=== PATIENT | male | born 1935 | race Caucasian/White ===

== ENCOUNTER 2023-09-21 21:47 | Inpatient (IN) | payer MEDICARE, BC ==
[2023-09-21] MEDS ORDERED: niCARdipine 25 MG/10 ML SDV ONE (22:09)
[2023-09-21 22:13] LABS: #Basophils 0.1 thou/uL (0.0-0.2); #Eosinphils 0.1 thou/uL (0.0-0.7); #Monocytes 0.7 thou/uL (0.11-0.59); #Neutrophils 7.1 thou/uL (1.40-6.50); %Basophils 0.7 % (0.0-1.0); %Eosinophils 1.4 % (0.0-10.0); %Lymphocytes 22.4 % (21.0-51.0); %Monocytes 6.7 % (0.0-10.0); %Neutrophils 68.5 % (42.0-75.0); Hemoglobin 15.1 g/dL (14.0-18.0); Mean Corpuscular HGB CONC 33.6 g/dL (32.0-36.0); Mean Corpuscular Hemoglobin 31.3 pg (27.0-31.0); Mean Corpuscular Volume 93.4 fl (78.0-98.0); Mean Platelet Volume 8.6 fL (7.4-10.4); Platelet Count 296 10x3/uL (130-400); RBC Distribution Width 12.8 % (11.5-14.5); Red Blood Cell (RBC) Count 4.82 mill/uL (4.70-6.10); White Blood Cell (WBC) Count 10.4 10x3/uL (4.8-10.8)
[2023-09-21 22:29] LABS: Prothrombin Time 13.1 sec (12.0-14.7)
[2023-09-21] MEDS ORDERED: Ondansetron PF 4 MG/2 ML Vial ONE (22:35)
[2023-09-21 22:36] LABS: ALT (SGPT) 12 U/L (8-55); AST (SGOT) 21 U/L (5-34); Albumin 4.6 g/dL (3.4-4.8); Alkaline Phosphatase 89 U/L (40-110); Anion Gap 16 mmol/L (10-20); BUN (Urea Nitrogen) 10 mg/dL (8.4-25.7); Bilirubin, Total 0.7 mg/dL (0.2-1.2); Calc. Creatinine Clearance 0 mL/min (70-130); Calcium 9.4 mg/dL (7.8-10.44); Carbon Dioxide 23 mmol/L (23-31); Chloride 103 mmol/L (98-107); Estimated GFR 83; Globulin 2.8 g/dL (2.4-3.5); Glucose 149 mg/dL (83-110); Potassium 3.7 mmol/L (3.5-5.1); Protein, Total 7.4 g/dL (5.8-8.1); Sodium 138 mmol/L (136-145)
[2023-09-21 22:39] LABS: Troponin I Less than 0.010 ng/mL (< 0.028)
[2023-09-22] MEDS ORDERED: Sodium Chloride 0.9% 1,000 ML IV SCH (00:30)
[2023-09-22 00:37] VITALS: BMI 20.7
[2023-09-22] MEDS: Morphine 2 MG/ML VIAL SLOW IVP PRN ×3 (05:52→14:36)
[2023-09-22] MEDS: Lorazepam 2 MG/ML VIAL SLOW IVP PRN ×2 (05:53→11:39)
[2023-09-22] MEDS ORDERED: Scopolamine 1 mg/72 hour Patch TD SCH (06:00)
[2023-09-22 08:08] VITALS: BP 130/76
[2023-09-22 14:43] VITALS: TEMP 101.4
== END 2023-09-22 15:39 | disposition hospice, inpatient (51) | DRG 64 ==
LOC: ERS 21:47 → T4-B 23:05 → OBSVTOIN 09-22 10:39
PROVIDERS: ADMIT Internal Medicine; ATTEND Internal Medicine
DX: I60.9 Nontraumatic subarachnoid hemorrhage, unspecified (principal); G93.41 Metabolic encephalopathy; G93.6 Cerebral edema; J96.01 Acute respiratory failure with hypoxia; F03.94 Unspecified dementia, unspecified severity, with anxiety; I16.1 Hypertensive emergency; F03.911 Unspecified dementia, unspecified severity, with agitation; I62.9 Nontraumatic intracranial hemorrhage, unspecified; F32.A Depression, unspecified; F03.90 Unspecified dementia, unspecified severity, without behavioral disturbance, psychotic disturbance, mood disturbance, and anxiety; Z90.49 Acquired absence of other specified parts of digestive tract; Z85.46 Personal history of malignant neoplasm of prostate; Z79.82 Long term (current) use of aspirin; Z79.899 Other long term (current) drug therapy
CPT/HCPCS: 36415; 36416; 70450; 71045; 80053; 84484; 85025; 85610; 85730; 93005; 94760; J2060; J2272; J2405

== ENCOUNTER 2023-09-22 15:57 | Inpatient (IN) | payer MEDICARE, OTHER ==
[2023-09-22] MEDS ORDERED: Acetaminophen 650 MG Suppository PR PRN (16:15)
[2023-09-22] MEDS ORDERED: Scopolamine 1 mg/72 hour Patch TOP PRN (16:15)
[2023-09-22] MEDS ORDERED: Haloperidol Lactate 5 MG/ML VIAL SLOW IVP PRN (16:15)
[2023-09-22] MEDS ORDERED: Ondansetron PF 4 MG/2 ML Vial IVP PRN (16:15)
[2023-09-22] MEDS ORDERED: Glycopyrrolate 0.4 MG/ 2 ML VIAL SLOW IVP PRN (16:15)
[2023-09-22] MEDS ORDERED: Bisacodyl 10 MG SUPP PR PRN (16:16)
[2023-09-22 16:45] VITALS: BMI 20.7
[2023-09-22] MEDS: Morphine 4 MG/ML VIAL SLOW IVP PRN (17:00)
[2023-09-22] MEDS: Lorazepam 2 MG/ML VIAL SLOW IVP PRN (17:01)
[2023-09-23] MEDS: Morphine 4 MG/ML VIAL SLOW IVP PRN ×4 (03:10→21:10)
[2023-09-23] MEDS: Lorazepam 2 MG/ML VIAL SLOW IVP PRN ×5 (03:15→21:10)
[2023-09-23] MEDS ORDERED: Morphine 4 MG/ML VIAL SLOW IVP PRN ×3 (09:38→14:15)
[2023-09-23] MEDS ORDERED: Lorazepam 2 MG/ML VIAL SLOW IVP SCH (09:45)
[2023-09-23] MEDS: Morphine 4 MG/ML VIAL SLOW IVP SCH ×2 (12:05→17:47)
[2023-09-24] MEDS: Morphine 4 MG/ML VIAL SLOW IVP SCH ×4 (00:08→17:34)
[2023-09-24] MEDS: Lorazepam 2 MG/ML VIAL SLOW IVP PRN ×3 (05:46→17:35)
[2023-09-24] MEDS: Morphine 4 MG/ML VIAL SLOW IVP PRN ×2 (09:53→17:34)
[2023-09-25] MEDS: Morphine 4 MG/ML VIAL SLOW IVP SCH ×4 (00:22→18:08)
[2023-09-25] MEDS: Lorazepam 2 MG/ML VIAL SLOW IVP PRN ×3 (00:23→08:16)
[2023-09-25] MEDS: Morphine 4 MG/ML VIAL SLOW IVP PRN (08:15)
[2023-09-25 09:58] VITALS: BP 91/57; TEMP 98.4
== END 2023-09-25 19:45 | disposition expired | DRG 951 ==
LOC: T4-B 15:58
PROVIDERS: ADMIT Family Medicine; ATTEND Family Medicine
DX: Z51.5 Encounter for palliative care (principal); I60.9 Nontraumatic subarachnoid hemorrhage, unspecified; J96.01 Acute respiratory failure with hypoxia; G93.41 Metabolic encephalopathy; I62.9 Nontraumatic intracranial hemorrhage, unspecified; I16.1 Hypertensive emergency; F03.90 Unspecified dementia, unspecified severity, without behavioral disturbance, psychotic disturbance, mood disturbance, and anxiety; F32.A Depression, unspecified; F41.9 Anxiety disorder, unspecified
CPT/HCPCS: J2060; J2270